=== PATIENT | male | born 1965 | race Caucasian/White ===

== ENCOUNTER 2018-12-07 12:27 | Day surgery (SDC) | payer OTHER ==
[~2018-12-07] VITALS: Ht 177.8 cm; Wt 87.0 kg
[2018-12-07 14:59] VITALS: Ht 177.8 cm; Wt 87.0 kg
[2018-12-07 15:08] VITALS: BP 127/78; PULSE 86; RESP 18
--- NOTE | 2018-12-07 15:54 | PREAC ---
Date/Time of Note Date/Time of Note DATE: 12/07/18 TIME: 15:53 Anesthesia Eval and Record Evaluation Time Pre-Procedure Interview DATE: 12/07/18 TIME: 15:53 Age 53 Sex male NPO: 8 hrs Preoperative diagnosis screenning Planned procedure colonoscopy Past Medical History Past Medical History: Includes Cardio: HTN, Dyslipidemia Surgery & Anesthesia Issues No known issue Meds Anticoagulation: No Beta Cornell within 24 hr: No Reason Beta Cornell not given: Pt. not on B-Cornell Reported Medications [None] No Conflict Check 12/07/18 Meds reviewed: Yes Allergies Allergies Reviewed: Yes Labs/Studies Labs Reviewed: Reviewed by anesthesiologist test: N/A Studies: ECG (n/a), CXR (n/a) Pre-procedure Exam Last vitals Vital Signs Date Temp Pulse Resp B/P (MAP) Pulse Ox O2 O2 Flow FiO2 Time Delivery Rate 12/07/18 97.9 86 18 127/78 98 Room Air 15:08 (94) Airway: Adequate mouth opening Mallampati: Mallampati I Teeth: Normal Lung: Normal Heart: Normal ASA Physical Status ASA physical status: 2 Emergency: None Planned Anesthetic General/MAC: MAC Pre-operative Attestations Prior to commencing anesthesia and surgery, the patient was re-evaluated, there was verification of: *The patient's identity *The results of appropriate recent lab work and preoperative vital signs *The above evaluation not changing prior to induction *Anesthetic plan, risk benefits, alternative and complications discussed with patient/family; questions answered; patient/family understands, accepts and wishes to proceed. AGUILA JERONIMO MD Dec 07, 2018 15:54
[2018-12-07] MEDS ORDERED: FENTAnyl 50 MCG/ML VIAL ONE (15:56)
[2018-12-07] MEDS ORDERED: PROPOFOL 20 ML ONE (15:56)
[2018-12-07] MEDS ORDERED: ONDANSETRON 4 MG INJ IV PRN (16:00)
--- NOTE | 2018-12-07 18:22 | PAC ---
Date/Time of Note Date/Time of Note DATE: 12/07/18 TIME: 18:22 Post-Anesthesia Notes Post-Anesthesia Note Last documented vital signs Vital Signs Date Temp Pulse Resp B/P (MAP) Pulse Ox O2 O2 Flow FiO2 Time Delivery Rate 12/07/18 97.9 86 18 127/78 98 Room Air 15:08 (94) Activity: WNL Respiratory function: WNL Cardiovascular function: WNL Mental status: Baseline Pain reasonably controlled: Yes Hydration appropriate: Yes Nausea/Vomiting absent: No AGUILA JERONIMO MD Dec 07, 2018 18:22
== END 2018-12-07 18:51 | disposition home or self-care (01) ==
LOC: GIL 12:27
PROVIDERS: ATTEND Internal Medicine Gastroenterology
DX: Z12.11 Encounter for screening for malignant neoplasm of colon (principal); K64.8 Other hemorrhoids; I10 Essential (primary) hypertension; E78.5 Hyperlipidemia, unspecified
CPT/HCPCS: 45378; 82962; 88305; J3010; Z7610